=== PATIENT | female | born 1970 | race Caucasian/White ===

== ENCOUNTER → 2016-12-16 | Outpatient (CLI) | payer OTHER ==
[~2016-12-16] MED LIST: BENADRYL25 M1 PO; CLARITIN10 M1 PO; DERMACORT1 GM EXT; FLEXERIL10 M1 PO; FLONASE16 GM; MAGIC MOUTHWASH PO; MEDROL DOSEPAK4 MG DOB; NAPROSYN500 MG PO; PHENERGAN DM1 ML PO; PREDNISONE PO; VIBRAMYCIN100 M1 PO
--- NOTE | ~2016-12-16 | CR126 ---
[facility] A Service of [facility] RADIOLOGY TEXT RESULTS PATIENT: HUGO PORTER LOCATION: [facility] : 74 UNIT #: [id number] AGE: [address]: GENESIS DAVIS APRN SEX: F ORDER DR: [id number] [facility] [address] [place], [place] [address] [id number] O MR#: [id number] Acc #: [id number] NAME: HUGO PORTER : 1970 SEX: F STUDY DATE/TIME: 12/16/2016 13:39 UNIT: [facility] ROOM: STUDY DESCRIPTION: CR Foot Complete Min 3 View Lt Attending Physician: Genesis Davis Referring Physician: Genesis Davis Ordering Physician: Anand Villar Aprn Primary Care Physician: Genesis Davis MEDICAL IMAGING REPORT This report is preliminary unless electronic signature is present EXAM Left foot 12/16/2016 INDICATIONS 46-year-old female with pain in the left foot, infection of the second digit of the left foot. Symptoms 3-4 days. Swelling and pain. TECHNIQUE 3 views left foot. No comparisons. FINDINGS No acute fracture. Joint space is preserved. No retained opaque foreign body. No focal erosive changes are seen. Probable chronic healed fracture deformity of the proximal phalanx third digit. IMPRESSION 1. No acute fracture or retained opaque foreign body. No focal erosive changes. 2. 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 Dictated by... Rakesh Kumar M.D. THIS IS AN ELECTRONICALLY VERIFIED REPORT Rakesh Kumar M.D. at 12/17/2016 10:24 AM Susanna TD: 12/17/2016 08:33 JOB #: [id number] MEDICAL IMAGING REPORT COPY
== END | disposition home or self-care (01) ==
LOC: CRAD 13:18
DX: M79.672 Pain in left foot (principal)
CPT/HCPCS: 73630